=== PATIENT | female | born 1975 | race Two or more races ===

== ENCOUNTER 2024-09-21 16:02 | Emergency (ER) | payer OTHER ==
[~2024-09-21] VITALS: Ht 152.4 cm; Wt 49.9 kg
[2024-09-21] MEDS ORDERED: ZYRTEC10 MG PO (16:08)
[2024-09-21] MEDS ORDERED: KETOROLAC TROMETHAMINE 30 MG VIAL IM STA (18:52)
[2024-09-21] MEDS ORDERED: CEFTRIAXONE SODIUM 500 MG VIAL IM STA (18:52)
[2024-09-21 20:00] LABS: HEMATOCRIT 38.8 % (36.0-45.00); HEMOGLOBIN 13.2 g/dL (12.0-15.00); MEAN CELL VOLUME 87.9 fL (80.00-100.00); MEAN CORPUSCULAR HEMOGLOBIN 29.9 pg (27.00-32.0); PH,URINE 5.5 (5.0-8.0); PLATELET COUNT 293 K/uL (150-450); RED BLOOD COUNT 4.42 M/uL (4.00-6.00); RED CELL DISTRIBUTION WIDTH 13.1 % (11.5-14.5); URINE APPEARANCE Clear; URINE BILIRRUBIN Negative (NEGATIVE); URINE BLOOD Large; URINE COLOR Yellow; URINE GLUCOSE Negative (NEGATIVE); URINE KETONE Negative (NEGATIVE); URINE LEUKOCYTE Moderate; URINE NITRATE Negative; URINE PROTEIN Trace (NEGATIVE); URINE UROBILINOGEN 0.2 E.U./dl
[2024-09-21 20:01] LABS: URINE BACTERIA 49.1 uL (0.0-1933); URINE EPITHELIAL CELLS 13.1 uL (0.0-38.8); URINE RBC 79.6 uL (0.0-20.8); URINE WBC 110.6 uL (0.0-23.2)
[2024-09-21 20:26] LABS: CALCIUM 9.9 mg/dL (8.5-10.1); CREATININE SERUM 0.78 mg/dL (0.55-1.02); GFR 78.5; POTASSIUM 4.12 mEq/L (3.5-5.1)
[2024-09-21] MEDS ORDERED: CIPRO500 MG PO (21:20)
[2024-09-21] MEDS ORDERED: PYRIDIUM100 M1 PO (21:20)
== END 2024-09-21 22:45 | disposition home or self-care (01) ==
LOC: ER 16:04
PROVIDERS: General Practice
DX: N39.0 Urinary tract infection, site not specified (principal)
CPT/HCPCS: 36415; 96372; 99282; J0696; J1885